=== PATIENT | female | born 1955 | race Hispanic/Latino ===

== ENCOUNTER 2021-03-21 19:20 | Emergency (ER) | payer BC, MEDICARE ==
[~2021-03-21] VITALS: Ht 149.9 cm; Wt 77.1 kg
[2021-03-21] MEDS ORDERED: 0.9%NACL 1000ML 1,000 ML IV ONE ×2 (20:18→21:00)
[2021-03-21] MEDS ORDERED: DiphenhydrAMINE HCL 50 MG/ML VIAL IV ONE (21:00)
[2021-03-21] MEDS ORDERED: HALOPERIDOL INJ 5 MG/ML VIAL IM SCH (21:00)
[2021-03-21 22:28] VITALS: BP 118/57
== END 2021-03-21 22:46 | disposition home or self-care (01) ==
LOC: EDH 19:20
DX: R51.9 Headache, unspecified (principal); F41.9 Anxiety disorder, unspecified; I10 Essential (primary) hypertension; I95.2 Hypotension due to drugs; Z79.899 Other long term (current) drug therapy; Z90.49 Acquired absence of other specified parts of digestive tract
CPT/HCPCS: 96361; 96372; 96374; 99284; J1200; J1630; J7030